=== PATIENT | male | born 1995 | race Caucasian/White ===

== ENCOUNTER 2018-03-19 14:57 | Emergency (ER) | payer BC ==
[2018-03-19 15:03] VITALS: BP 131/56
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
== END 2018-03-19 15:51 | disposition home or self-care (01) ==
DX: R45.4 Irritability and anger (principal); S60.222A Contusion of left hand, initial encounter; W22.8XXA Striking against or struck by other objects, initial encounter; Y92.9 Unspecified place or not applicable; F90.9 Attention-deficit hyperactivity disorder, unspecified type; F17.200 Nicotine dependence, unspecified, uncomplicated

== ENCOUNTER 2018-09-02 19:46 | Emergency (ER) | payer BC ==
[2018-09-02] MEDS ORDERED: LET GEL TOPICAL 1 EA SYR TP ONE (19:57)
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
[2018-09-02 20:54] LABS: PLATELET COUNT 276 10^3/uL (150-400)
[2018-09-02] MEDS ORDERED: LORazepam 1 MG TAB ONE (21:12)
[2018-09-02] MEDS ORDERED: LORazepam 1 MG TAB PO ONE (21:13)
[2018-09-03] MEDS ORDERED: LORazepam 1 MG TAB PO ONE ×3 (00:52→14:45)
[2018-09-03] MEDS ORDERED: NICOTINE 21 MG/24 HR PATCH TD ONE (12:46)
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
--- NOTE | 2018-09-03 14:54 | ASMTTCLDSP ---
[facility] Discharge Disposition Disposition: Answers: Transfer Discharge Concerns/Recommendations: Notes: In consultation with [facility] ED physician, Dr Tamayo and on-call psychiatrist,dr Hernandez , both concurred that Pt does appear to meet 27-65 criteria requiring psychiatric hospitalization as Pt does appear to be an imminent risk of harm to self/others/due to grave disability due to a mental illness condition. Pt was read the Patient Rights and Responsibilities Statement on 08/28/2018 at 18:30, original placed in chart and copy given to pt. Type of Hold: Answers: M1/72-hour Hold Hold initiated by: Answers: Police For Transfers, Accepting [facility] Facility: For Transfers, Accepting Dr Jesus Psychiatrist: For Transfers, Reason No capacity at [facility] Patient is Being Transferred: Date Signed: 09/03/2018 02:54 PM Electronically Signed By:Torie Christian
[2018-09-03 17:39] VITALS: BP 121/75
== END 2018-09-03 17:39 ==
LOC: EDUNIT#
PROC: 0HQ1XZZ Repair Face Skin, External Approach (ICD-10-PCS; principal; 2018-09-02)
DX: S01.112A Laceration without foreign body of left eyelid and periocular area, initial encounter (principal); Y04.0XXA Assault by unarmed brawl or fight, initial encounter; Y92.480 Sidewalk as the place of occurrence of the external cause
CPT/HCPCS: 80305; G0480